=== PATIENT | female | born 1965 | race African-American/Black ===

== ENCOUNTER 2019-04-26 18:08 | Emergency (ER) | payer MEDICAID ==
[~2019-04-26] VITALS: Ht 165.1 cm; Wt 91.0 kg
[2019-04-26] MEDS ORDERED: HYDROCODONE/ACETAMINOPHEN 5/325MG TABLET PO ONE (18:45)
[2019-04-26 18:51] VITALS: BP 148/89
== END 2019-04-26 20:50 | disposition home or self-care (01) ==
LOC: ER 18:08
DX: M71.22 Synovial cyst of popliteal space [Baker], left knee (principal); I10 Essential (primary) hypertension; E11.9 Type 2 diabetes mellitus without complications
CPT/HCPCS: 93970; 99284

== ENCOUNTER 2019-07-29 19:39 | Inpatient (IN) | payer MEDICAID ==
[~2019-07-29] VITALS: Ht 175.3 cm; Wt 130.6 kg
[2019-07-29] MEDS ORDERED: ONDANSETRON HCL 4MG/2ML INJ IV STA (20:53)
[2019-07-29] MEDS ORDERED: MAGNESIUM/ALUMINUM HYDROXIDE/SIMETHICONE 30ML UDC PO STA (20:53)
[2019-07-29] MEDS ORDERED: FAMOTIDINE 20MG/2ML VIAL IV STA (20:53)
[2019-07-29] MEDS ORDERED: ACETAMINOPHEN 325MG TABLET PO STA (20:53)
[2019-07-29 22:07] LABS: HEMOGLOBIN. 7.3 g/dL (12.0-16.0); MEAN CORPUSCULAR HEMOGLOBIN 40.2 pg (28.0-32.0); MEAN PLATELET VOLUME 8.9 fl (7.4-10.4); PLATELET 163 x1000/uL (130-400); RED CELL DISTRIBUTION WIDTH 23.9 % (11.6-14.6)
[2019-07-29 22:11] LABS: CHLORIDE 104 mEq/L (98-107); CLARITY URINE CLOUDY (CLEAR); COLOR URINE YELLOW (YELLOW); KETONES URINE NEGATIVE (NEGATIVE); LEUKOCYTE ESTERASE URINE TRACE (NEGATIVE); NITRITE URINE NEGATIVE (NEGATIVE); OCCULT BLOOD URINE 1+ (NEGATIVE); PH URINE 5.5 (4.5-8.0); PROTEIN URINE TRACE (NEGATIVE); SPECIFIC GRAVITY URINE 1.013 (1.005-1.030)
[2019-07-29 22:17] LABS: HEMATOCRIT. 20.7 % (36.0-48.0)
[2019-07-29 22:28] LABS: PLATELET ESTIMATE NORMAL
[2019-07-29] MEDS ORDERED: IOHEXOL-300 100 ML BOTTLE ONE (23:11)
[2019-07-30] MEDS ORDERED: MORPHINE SULFATE 2 MG/ML CPJ (NOT FOR IM USE) IV ONE (01:00)
[2019-07-30 01:15] LABS: MEAN CORPUSCULAR HEMOGLOBIN 39.8 pg (28.0-32.0); MEAN CORPUSCULAR VOLUME 113.1 fL (81.0-99.0); PLATELET 144 x1000/uL (130-400)
[2019-07-30 01:18] LABS: HEMATOCRIT 19.2 % (36.0-48.0); HEMOGLOBIN 6.8 g/dL (12.0-16.0)
[2019-07-30 05:45] VITALS: BP 148/85
[2019-07-30] MEDS ORDERED: GABA-529 PO (06:35)
[2019-07-30 08:00] VITALS: BP 137/68
[2019-07-30] MEDS: AMLODIPINE 10MG TABLET PO SCH (09:39)
[2019-07-30] MEDS: MORPHINE SULFATE 2 MG/ML CPJ (NOT FOR IM USE) IV PRN ×2 (09:41→17:55)
[2019-07-30 10:37] LABS: VITAMIN B12 SERUM 82 pg/mL (211-911)
[2019-07-30 11:05] LABS: FOLIC ACID (FOLATE) SERUM > 20.00 ng/mL (>5.38)
[2019-07-30 13:00] LABS: FERRITIN 209 ng/mL (10-291)
[2019-07-30] MEDS ORDERED: POTASSIUM CHLORIDE 20MEQ TABLET SR PO NR (13:00)
[2019-07-30 17:52] LABS: HEMATOCRIT 25.1 % (36.0-48.0); HEMOGLOBIN 8.9 g/dL (12.0-16.0); MEAN CORPUSCULAR HEMOGLOBIN 38.7 pg (28.0-32.0); MEAN CORPUSCULAR VOLUME 109.4 fL (81.0-99.0); PLATELET 158 x1000/uL (130-400); RED BLOOD CELL COUNT 2.29 mill/uL (4.2-5.4); RED CELL DISTRIBUTION WIDTH 26.7 % (11.6-14.6)
[2019-07-30] MEDS: DEXT 5%/0.45% NACL 1000ML 1,000 ML IV SCH (17:53)
[2019-07-30 19:15] LABS: HEPATITIS A AB IGM NEGATIVE (NEGATIVE)
[2019-07-30 20:00] VITALS: BP 146/86
[2019-07-30 20:03] LABS: HEPATITIS B SURFACE ANTIGEN NEGATIVE
[2019-07-30] MEDS: PANTOPRAZOLE SODIUM 40 MG/VIAL IV SCH (21:00)
[2019-07-31] VITALS: BP 117/63
[2019-07-31 00:09] LABS: HEMATOCRIT 22.5 % (36.0-48.0); HEMOGLOBIN 7.9 g/dL (12.0-16.0)
[2019-07-31 04:00] VITALS: BP 149/63
[2019-07-31] MEDS: MORPHINE SULFATE 2 MG/ML CPJ (NOT FOR IM USE) IV PRN ×4 (04:09→20:43)
[2019-07-31] MEDS: DEXT 5%/0.45% NACL 1000ML 1,000 ML IV SCH ×3 (06:36→18:07)
[2019-07-31 07:05] LABS: BASOPHILS % 0.5 % (0.0-2.0); EOSINOPHILS % 1.6 % (0.0-5.0); HEMATOCRIT. 22.6 % (36.0-48.0); HEMOGLOBIN. 7.9 g/dL (12.0-16.0); LYMPHOCYTES % 34.2 % (20.0-50.0); MEAN CORPUSCULAR HEMOGLOBIN 38.2 pg (28.0-32.0); MEAN CORPUSCULAR VOLUME 109.7 fL (81.0-99.0); MEAN PLATELET VOLUME 8.9 fl (7.4-10.4); MONOCYTES % 3.4 % (2.0-8.0); NEUTROPHILS % 60.3 % (40.0-76.0); PLATELET 139 x1000/uL (130-400); RED BLOOD CELL COUNT 2.06 mill/uL (4.2-5.4); RED CELL DISTRIBUTION WIDTH 27.7 % (11.6-14.6)
[2019-07-31 07:17] LABS: CHLORIDE 103 mEq/L (98-107)
[2019-07-31 07:28] LABS: PARTIAL THROMBOPLASTIN TIME 23.4 sec (23.4-31.0); PROTHROMBIN TIME 10.8 sec (9.6-11.0)
[2019-07-31 08:00] VITALS: BP 130/71
[2019-07-31] MEDS: PANTOPRAZOLE SODIUM 40 MG/VIAL IV SCH ×2 (10:08→20:42)
[2019-07-31 12:00] VITALS: BP 123/67
[2019-07-31 12:18] LABS: CLARITY URINE CLEAR (CLEAR); COLOR URINE YELLOW (YELLOW); KETONES URINE NEGATIVE (NEGATIVE); LEUKOCYTE ESTERASE URINE 2+ (NEGATIVE); NITRITE URINE NEGATIVE (NEGATIVE); OCCULT BLOOD URINE TRACE (NEGATIVE); PROTEIN URINE NEGATIVE (NEGATIVE)
[2019-07-31 13:12] LABS: *AMPHETAMINES SCREEN URINE NEGATIVE (NEGATIVE); *BARBITURATES SCREEN URINE NEGATIVE (NEGATIVE); *BENZODIAZEPINES SCREEN URINE NEGATIVE (NEGATIVE); *COCAINE SCREEN URINE NEGATIVE (NEGATIVE); CANNABINOID URINE SCREEN NEGATIVE (NEGATIVE); METHADONE URINE SCREEN NEGATIVE (NEGATIVE); OPIATES URINE SCREEN PRESUMTIVE POSITIVE (NEGATIVE); PHENCYCLIDINE URINE SCREEN NEGATIVE (NEGATIVE)
[2019-07-31 15:57] VITALS: BP 135/68
[2019-07-31] MEDS: AMLODIPINE 10MG TABLET PO SCH (16:03)
[2019-07-31 18:05] LABS: HEMATOCRIT 24.6 % (36.0-48.0); HEMOGLOBIN 8.7 g/dL (12.0-16.0)
[2019-07-31 20:00] VITALS: BP_SYST 128; BP_SYST 131; BP_DIAS 67; BP_DIAS 78
[2019-08-01] VITALS: BP 123/70
[2019-08-01 04:00] VITALS: BP 109/68
[2019-08-01] MEDS: MORPHINE SULFATE 2 MG/ML CPJ (NOT FOR IM USE) IV PRN ×4 (04:35→23:12)
[2019-08-01 08:00] VITALS: BP 147/83
[2019-08-01 08:03] LABS: BASOPHILS % 0.6 % (0.0-2.0); HEMATOCRIT. 23.8 % (36.0-48.0); HEMOGLOBIN. 8.5 g/dL (12.0-16.0); LYMPHOCYTES % 35.5 % (20.0-50.0); MEAN CORPUSCULAR HEMOGLOBIN 38.5 pg (28.0-32.0); MEAN CORPUSCULAR VOLUME 107.9 fL (81.0-99.0); MONOCYTES % 3.4 % (2.0-8.0); NEUTROPHILS % 58.5 % (40.0-76.0); PLATELET 134 x1000/uL (130-400); RED CELL DISTRIBUTION WIDTH 26.3 % (11.6-14.6)
[2019-08-01 08:05] LABS: CHLORIDE 103 mEq/L (98-107)
[2019-08-01] MEDS: AMLODIPINE 10MG TABLET PO SCH (09:00)
[2019-08-01 12:00] VITALS: BP 130/55
[2019-08-01 16:00] VITALS: BP 130/77
[2019-08-01] MEDS ORDERED: FENTANYL CITRATE/PF 50MCG/ML 2ML VIAL ONE (16:38)
[2019-08-01] MEDS ORDERED: MIDAZOLAM HCL 5 MG/5 ML VIAL ONE (16:39)
[2019-08-01] MEDS ORDERED: MIDAZOLAM HCL 5 MG/5 ML VIAL IV PRN (16:50)
[2019-08-01] MEDS ORDERED: FENTANYL CITRATE/PF 50MCG/ML 2ML VIAL IV PRN (16:51)
[2019-08-01] MEDS ORDERED: CYANOCOBALAMIN 1000MCG/ML VIAL IM NR (17:15)
[2019-08-01] MEDS: DEXT 5%/0.45% NACL 1000ML 1,000 ML IV SCH (18:48)
[2019-08-01 20:00] VITALS: BP 127/65
[2019-08-02] VITALS: BP 119/76
[2019-08-02] MEDS: DEXT 5%/0.45% NACL 1000ML 1,000 ML IV SCH (02:05)
[2019-08-02 03:31] VITALS: BP 131/75
[2019-08-02] MEDS: MORPHINE SULFATE 2 MG/ML CPJ (NOT FOR IM USE) IV PRN ×2 (03:35→09:16)
[2019-08-02 04:30] VITALS: BP 143/87
[2019-08-02 05:50] LABS: BASOPHILS % 0.4 % (0.0-2.0); EOSINOPHILS % 2.2 % (0.0-5.0); HEMOGLOBIN. 8.1 g/dL (12.0-16.0); LYMPHOCYTES % 34.8 % (20.0-50.0); MEAN CORPUSCULAR HEMOGLOBIN 38.5 pg (28.0-32.0); MEAN CORPUSCULAR VOLUME 108.9 fL (81.0-99.0); MEAN PLATELET VOLUME 8.6 fl (7.4-10.4); MONOCYTES % 3.1 % (2.0-8.0); NEUTROPHILS % 59.5 % (40.0-76.0); PLATELET 149 x1000/uL (130-400); RED BLOOD CELL COUNT 2.11 mill/uL (4.2-5.4); RED CELL DISTRIBUTION WIDTH 27.4 % (11.6-14.6)
[2019-08-02 06:03] LABS: CHLORIDE 102 mEq/L (98-107)
[2019-08-02 08:00] VITALS: BP 129/70
[2019-08-02] MEDS ORDERED: CYANOCOBALAMIN 1000MCG/ML VIAL IM SCH (09:00)
[2019-08-02] MEDS: AMLODIPINE 10MG TABLET PO SCH (09:15)
[2019-08-02] MEDS ORDERED: CYAN-50 MT (11:51)
[2019-08-02 12:00] VITALS: BP 116/90
[2019-08-02 12:30] VITALS: BP 116/90
[2019-08-08 13:06] LABS: ANTI-PARIETAL CELL AB 65.3 Units (0.0-20.0)
== END 2019-08-02 13:36 | disposition home or self-care (01) | DRG 241 ==
LOC: ER 19:39 → 6WST 07-30 01:54 → ENRESERV 07-30 02:18
PROVIDERS: ADMIT Internal Medicine; ATTEND Internal Medicine
PROC: 30233N1 Transfusion of Nonautologous Red Blood Cells into Peripheral Vein, Percutaneous Approach (ICD-10-PCS; 2019-07-30)
PROC: 0DB68ZX Excision of Stomach, Via Natural or Artificial Opening Endoscopic, Diagnostic (ICD-10-PCS; principal; 2019-08-01)
DX: K29.71 Gastritis, unspecified, with bleeding (principal); D50.9 Iron deficiency anemia, unspecified; E87.6 Hypokalemia; E11.9 Type 2 diabetes mellitus without complications; F17.210 Nicotine dependence, cigarettes, uncomplicated; K92.0 Hematemesis; K52.9 Noninfective gastroenteritis and colitis, unspecified; R74.0 Nonspecific elevation of levels of transaminase and lactic acid dehydrogenase [LDH]; I10 Essential (primary) hypertension; Z90.49 Acquired absence of other specified parts of digestive tract; Z88.6 Allergy status to analgesic agent; Z71.6 Tobacco abuse counseling
CPT/HCPCS: 36415; 74177; 76700; 80048; 80053; 80076; 80305; 81003; 82270; 82607; 82728; 82746; 83036; 85014; 85018; 85025; 85027; 86340; 86705; 86709; 86803; 86850; 86900; 86920; 87015; 87045; 87340; 87427; 87449; 88305; 88312; 88313; 93970; 96374; 96375; 99285; C9113; J2250; J2270; J2405; J3010; J3420; J3490; P9016; Q9967

== ENCOUNTER 2019-09-01 11:09 | Emergency (ER) | payer MEDICAID ==
[~2019-09-01] VITALS: Ht 165.1 cm; Wt 82.0 kg
[~2019-09-01 11:09] MED LIST: CYAN-50 MT; GABA-529 PO
[2019-09-01] MEDS ORDERED: SODIUM CHLORIDE 0.9% 1,000 ML IV ONE (12:06)
[2019-09-01] MEDS ORDERED: IPRATROPIUM BROMIDE (0.02%) 0.5MG/2.5ML NEB HHN STA (12:06)
[2019-09-01] MEDS ORDERED: ALBUTEROL (0.083%) 2.5MG/3ML NEB HHN STA (12:06)
[2019-09-01] MEDS ORDERED: ACETAMINOPHEN 500MG TABLET PO ONE (12:15)
[2019-09-01 13:12] LABS: BASOPHILS % 1.3 % (0.0-2.0); EOSINOPHILS % 1.4 % (0.0-5.0); HEMATOCRIT. 36.5 % (36.0-48.0); HEMOGLOBIN. 12.1 g/dL (12.0-16.0); LYMPHOCYTES % 26.1 % (20.0-50.0); MEAN CORPUSCULAR HEMOGLOBIN 30.2 pg (28.0-32.0); MEAN CORPUSCULAR VOLUME 91.3 fL (81.0-99.0); MEAN PLATELET VOLUME 9.8 fl (7.4-10.4); MONOCYTES % 4.1 % (2.0-8.0); NEUTROPHILS % 67.1 % (40.0-76.0); PLATELET 295 x1000/uL (130-400); RED CELL DISTRIBUTION WIDTH 17.5 % (11.6-14.6)
[2019-09-01 13:17] LABS: CHLORIDE 104 mEq/L (98-107)
[2019-09-01 13:30] VITALS: BP 116/66
== END 2019-09-01 17:27 | disposition home or self-care (01) ==
LOC: ER 11:09
DX: J06.9 Acute upper respiratory infection, unspecified (principal); E11.9 Type 2 diabetes mellitus without complications; I10 Essential (primary) hypertension; J45.909 Unspecified asthma, uncomplicated; M79.10 Myalgia, unspecified site; F17.290 Nicotine dependence, other tobacco product, uncomplicated; Z88.6 Allergy status to analgesic agent; Z90.49 Acquired absence of other specified parts of digestive tract; Z71.6 Tobacco abuse counseling; Z79.899 Other long term (current) drug therapy
CPT/HCPCS: 36415; 71045; 80053; 83880; 84484; 85025; 87804; 93005; 94640; 99284; 99406; J7030; J7611